=== PATIENT | male | born 1950 | race Caucasian/White ===

== ENCOUNTER → 2019-01-13 | Outpatient (CLI) | payer MEDICARE ==
[~2019-01-13] MED LIST: NIAC500T10 PO; OXYB5TAB7 PO; PANT40TA5 PO; SILD25TA PO; TAMS0.4C2 PO
== END | disposition home or self-care (01) ==
LOC: STAR 07:51
PROVIDERS: ATTEND Urology
DX: Z01.818 Encounter for other preprocedural examination (principal); I44.7 Left bundle-branch block, unspecified; I44.0 Atrioventricular block, first degree; N40.1 Benign prostatic hyperplasia with lower urinary tract symptoms
CPT/HCPCS: 93005

== ENCOUNTER 2019-01-16 15:58 | Outpatient (CLI) | payer MEDICARE | END 2019-01-16 23:59 | disposition home or self-care (01) | LOC: CVU 15:58 | PROVIDERS: ATTEND Nurse Practitioner Family | DX: Z01.810 Encounter for preprocedural cardiovascular examination (principal); I34.0 Nonrheumatic mitral (valve) insufficiency; I44.7 Left bundle-branch block, unspecified | CPT/HCPCS: 93306 ==

== ENCOUNTER → 2019-01-17 | Outpatient (CLI) | payer MEDICARE ==
[~2019-01-17] MED LIST changes: +REGADENOSON 0.4 MG/5 ML SYRINGE ONE
== END | disposition home or self-care (01) ==
LOC: CFH 07:40
PROVIDERS: ATTEND Nurse Practitioner Family
DX: Z01.810 Encounter for preprocedural cardiovascular examination (principal); I44.7 Left bundle-branch block, unspecified; R42 Dizziness and giddiness
CPT/HCPCS: 78452; 93017; A9502; J2785

== ENCOUNTER → 2020-10-02 | Outpatient (CLI) | payer MEDICARE ==
[~2020-10-02] MED LIST changes: +ATOR20TA37 PO; +ESCI10TA PO; +NIAC-27 PO; -NIAC500T10 PO; +OXYB5TAB10 PO; -OXYB5TAB7 PO; -PANT40TA5 PO; +PANT40TA6 PO; -REGADENOSON 0.4 MG/5 ML SYRINGE ONE; +SULF-16 PO
== END | disposition home or self-care (01) ==
LOC: CLISVCS 08:36
PROVIDERS: ATTEND Anesthesiology
DX: Z20.828 Contact with and (suspected) exposure to other viral communicable diseases (principal)
CPT/HCPCS: 87635

== ENCOUNTER 2020-10-07 07:20 | Day surgery (SDC) | payer MEDICARE ==
[~2020-10-07] VITALS: Ht 188 cm; Wt 91.0 kg
[~2020-10-07 07:20] MED LIST changes: -ATOR20TA37 PO; -ESCI10TA PO; -SULF-16 PO
[2020-10-07] MEDS ORDERED: CHLORHEXIDINE 15 ML UDC MM STA (07:45)
[2020-10-07 07:47] VITALS: BP 127/86
[2020-10-07] MEDS ORDERED: ATOR20TA37 PO (07:55)
[2020-10-07] MEDS ORDERED: ESCI10TA PO (07:55)
[2020-10-07] MEDS ORDERED: SULF-16 PO (07:55)
[2020-10-07] MEDS ORDERED: LACTATED RINGERS 1,000 ML IV SCH (08:00)
[2020-10-07] MEDS ORDERED: DEXAMETHASONE 4 MG/ML, 1ML ONE (08:04)
[2020-10-07] MEDS ORDERED: ROCURONIUM 10MG/ML,5ML ONE (08:04)
[2020-10-07] MEDS ORDERED: GLYCOPYRROLATE 0.2MG/1ML, 5ML ONE (08:04)
[2020-10-07] MEDS ORDERED: PROPOFOL 10 MG/ML, 20ML ONE (08:04)
[2020-10-07] MEDS ORDERED: FENTANYL PF 100 MCG/2ML ONE ×2 (08:05→09:59)
[2020-10-07] MEDS ORDERED: MIDAZOLAM 1 MG/ML, 2ML ONE (08:05)
[2020-10-07 08:54] LABS: BASOPHILS % (AUTO) 1 % (0-1); EOSINOPHILS % (AUTO) 1 % (1-7); LYMPHOCYTES % (AUTO) 26 % (22-44); MEAN CORPUSCULAR HEMOGLOBIN 29.6 pg (27.5-34.5); MEAN CORPUSCULAR HGB CONC 32.7 g/dL (33.2-36.2); MEAN PLATELET VOLUME 7.7 fL (7.4-10.4); MONOCYTES % (AUTO) 8 % (2-9); NEUTROPHILS % (AUTO) 65 % (42-75); PLATELET COUNT 276 x10^3/uL (130-400); RED BLOOD COUNT 4.86 x10^6/uL (4.38-5.82); RED CELL DISTRIBUTION WIDTH 14.7 % (9.4-14.8)
[2020-10-07 08:58] LABS: MD NO
[2020-10-07 09:00] LABS: ANION GAP 3 mmol/L (5-15); CALCIUM 8.7 mg/dL (8.5-10.1); CHLORIDE 111 mmol/L (98-107)
[2020-10-07] MEDS ORDERED: METOCLOPRAMIDE 5 MG/ML, 2ML IVPush PRN (09:00)
[2020-10-07] MEDS ORDERED: LABETALOL 5MG/ML, 20ML IV PRN (09:00)
[2020-10-07] MEDS ORDERED: OXYcodone 5 MG/5 ML ORAL.SOL UDC PO PRN (09:00)
[2020-10-07] MEDS ORDERED: DIPHENHYDRAMINE 50 MG/ML, 1ML IVPush PRN (09:00)
[2020-10-07] MEDS ORDERED: hydrALAzine 20 MG/ML, 1ML IV PRN (09:00)
[2020-10-07] MEDS ORDERED: EPHEDRINE 50 MG/ML, 1ML IVPush PRN (09:00)
[2020-10-07] MEDS ORDERED: ALBUTEROL/IPRATROPIUM 2.5MG/0.5MG, 3 ML NPPB PRN (09:00)
[2020-10-07] MEDS ORDERED: HALOPERIDOL 5 MG/ML IV PRN (09:00)
[2020-10-07] MEDS ORDERED: MIDAZOLAM 1 MG/ML, 2ML IV PRN (09:00)
[2020-10-07] MEDS ORDERED: ONDANSETRON 2MG/ML, 2ML IVPush PRN (09:00)
[2020-10-07] MEDS ORDERED: KETOROLAC 30 MG/1 ML IV PRN ×2 (09:00→10:00)
[2020-10-07] MEDS ORDERED: ACETAMINOPHEN 325 MG TABLET PO PRN (09:00)
[2020-10-07] MEDS ORDERED: HYDROcodone/APAP 7.5-325MG/15ML UDC PO PRN (09:00)
[2020-10-07] MEDS ORDERED: EPHEDRINE 50 MG/ML, 1ML IM PRN (09:00)
[2020-10-07] MEDS ORDERED: METHOCARBAMOL 1,000 MG in DEXTROSE 5% 100 ML IV PRN (09:00)
[2020-10-07] MEDS ORDERED: HYDROmorphone 1 MG/ML, 1ML INJ IVPush PRN (09:00)
[2020-10-07] MEDS ORDERED: LORazepam 2 MG/ML, 1ML IVPush PRN (09:00)
[2020-10-07] MEDS ORDERED: DIAZEPAM 5 MG/ML, 2ML IVPush PRN (09:00)
[2020-10-07] MEDS ORDERED: MEPERIDINE/PF 25MG/0.5ML IVPush PRN (09:00)
[2020-10-07 09:02] LABS: CREATININE 1.13 mg/dL (0.7-1.3)
[2020-10-07] MEDS ORDERED: CEFAZOLIN 1,000 MG ONE (09:24)
[2020-10-07] MEDS ORDERED: PHENAZOPYRIDINE 200 MG TABLET PO STA (09:56)
[2020-10-07] MEDS ORDERED: PHENAZOPYRIDINE 200 MG TABLET ONE (09:59)
[2020-10-07] MEDS ORDERED: OXYcodone/APAP 5/325MG TABLET PO PRN (10:00)
[2020-10-07] MEDS: FENTANYL PF 100 MCG/2ML IV PRN ×2 (10:03→10:16)
== END 2020-10-07 12:00 | disposition home or self-care (01) ==
LOC: OUT 07:20
PROVIDERS: ATTEND Urology
DX: N32.9 Bladder disorder, unspecified (principal); N40.1 Benign prostatic hyperplasia with lower urinary tract symptoms; N13.8 Other obstructive and reflux uropathy; N52.9 Male erectile dysfunction, unspecified; N32.81 Overactive bladder; N42.89 Other specified disorders of prostate; E29.1 Testicular hypofunction; F41.9 Anxiety disorder, unspecified; Z79.899 Other long term (current) drug therapy; Z83.3 Family history of diabetes mellitus
CPT/HCPCS: 36415; 52630; 80048; 85025; 88305; 93005; C1760; J0690; J1100; J2250; J2704; J3010; J7120

== ENCOUNTER 2020-11-16 07:08 | Emergency (ER) | payer MEDICARE ==
[~2020-11-16] VITALS: Ht 188 cm; Wt 91.9 kg
[~2020-11-16 07:08] MED LIST changes: +ATOR20TA37 PO; +ESCI10TA PO; +SULF-16 PO
--- NOTE | 2020-11-16 07:28 | NUR ---
Patient is placed on monitor, at bedisde. Plan of care discussed
[2020-11-16] MEDS ORDERED: ONDANSETRON 2MG/ML, 2ML IVPush ONE (07:30)
[2020-11-16] MEDS ORDERED: SODIUM CHLORIDE FLUSH 10ML SYR IVF ONE (07:30)
[2020-11-16] MEDS ORDERED: ONDANSETRON 2MG/ML, 2ML ONE (07:33)
[2020-11-16] MEDS ORDERED: MORPHINE SULFATE 4 MG/ML, 1ML ONE ×2 (07:33→09:37)
[2020-11-16] MEDS: MORPHINE SULFATE 4 MG/ML, 1ML IVPush PRN ×2 (07:40→09:47)
[2020-11-16 08:00] LABS: ALANINE AMINOTRANSFERASE 24 U/L (12-78); ALBUMIN 3.4 g/dL (3.4-5.0); ANION GAP 5 mmol/L (5-15); CALCIUM 9.1 mg/dL (8.5-10.1); CHLORIDE 111 mmol/L (98-107); CREATININE 1.23 mg/dL (0.7-1.3)
[2020-11-16 08:03] LABS: ALKALINE PHOSPHATASE 82 U/L (45-117); BILIRUBIN,TOTAL 0.9 mg/dL (0.2-1.0)
[2020-11-16 08:08] LABS: BASOPHILS % (AUTO) 1 % (0-1); EOSINOPHILS % (AUTO) 1 % (1-7); LYMPHOCYTES % (AUTO) 19 % (22-44); MEAN CORPUSCULAR HEMOGLOBIN 27.5 pg (27.5-34.5); MEAN CORPUSCULAR HGB CONC 33.1 g/dL (33.2-36.2); MONOCYTES % (AUTO) 10 % (2-9); NEUTROPHILS % (AUTO) 70 % (42-75); PLATELET COUNT 279 x10^3/uL (130-400); RED BLOOD COUNT 5.61 x10^6/uL (4.38-5.82); RED CELL DISTRIBUTION WIDTH 15.1 % (9.4-14.8)
[2020-11-16 08:10] LABS: MD NO
[2020-11-16] MEDS ORDERED: OMNIPAQUE 350 MG/ML, 100ML BOTTLE ONE (08:22)
[2020-11-16 08:25] LABS: MICROSCOPIC INDICATED
--- NOTE | 2020-11-16 08:31 | NUR ---
Patient to and from CT scan. Pain relief with morphine, refuses pain medication at this time. pt on spo2 and BP monitor, at bedside. pending results.
--- NOTE | 2020-11-16 09:10 | NUR ---
Pain relief with medication. Pending results.
--- NOTE | 2020-11-16 09:52 | NUR ---
Pt remeidcated for pain per request. aware must stay for discharge.
[2020-11-16 10:29] VITALS: BP 143/82
--- NOTE | 2020-11-16 10:29 | NUR ---
PT DISCHARGED HOME AMBULATED WITH EVN STEADY GAIT IN NO ACUTE DISTRESS.
== END 2020-11-16 10:32 | disposition home or self-care (01) ==
LOC: ED 08:21
DX: N13.2 Hydronephrosis with renal and ureteral calculous obstruction (principal); E78.5 Hyperlipidemia, unspecified
CPT/HCPCS: 36415; 74177; 80053; 81001; 83690; 85025; 87086; 96374; 96375; 96376; 99285; J2270; J2405; Q9967